=== PATIENT | female | born 1955 | race Caucasian/White ===

== ENCOUNTER → 2020-11-03 | Outpatient (CLI) | payer MEDICARE | LOC: MAMO 13:22 | DX: Z12.31 Encounter for screening mammogram for malignant neoplasm of breast (principal); M85.88 Other specified disorders of bone density and structure, other site; M85.852 Other specified disorders of bone density and structure, left thigh | CPT/HCPCS: 77063; 77067; 77080 ==

== ENCOUNTER → 2021-03-01 | Outpatient (CLI) | payer MEDICARE | LOC: HEART 5 15:07 | DX: R42 Dizziness and giddiness (principal) ==